=== PATIENT | male | born 1995 | race Caucasian/White ===

== ENCOUNTER 2018-06-20 09:19 | Emergency (ER) | payer OTHER ==
[~2018-06-20] VITALS: Ht 175.3 cm; Wt 60.8 kg
[2018-06-20 09:24] VITALS: Ht 175.3 cm; Wt 60.8 kg
[2018-06-20 10:43] VITALS: BP 102/53
== END 2018-06-20 10:43 | disposition home or self-care (01) ==
LOC: ED 09:19
DX: S39.012A Strain of muscle, fascia and tendon of lower back, initial encounter (principal); R51 Headache; V89.2XXA Person injured in unspecified motor-vehicle accident, traffic, initial encounter; Y93.89 Activity, other specified; Y92.89 Other specified places as the place of occurrence of the external cause; Y99.8 Other external cause status